=== PATIENT | female | born 1940 | race Caucasian/White ===

== ENCOUNTER 2016-08-15 01:48 | Inpatient (IN) | payer OTHER, MEDICARE ==
[~2016-08-15] VITALS: Ht 160 cm; Wt 81.6 kg
[~2016-08-15 01:48] MED LIST: ESTRACE0.5 M1 PO; FERROUS SULFAT325 M3 PO; HYDROXYZINE HCL25 M2 PO; MEDROXYPROGEST2.5 M2 PO; MELOXICAM7.5 M1 PO; OMEPRAZOLE20 M2 PO; PAROXETINE HCL40 M1 PO; SIMVASTATIN10 M1 PO; VITAMIN D2000 UNIT PO
--- NOTE | 2016-08-15 10:13 | Operative Report ---
Operative/Inv Procedure Report Surgery Date: 08/15/16 Name of Procedure: Left total knee arthroplasty Pre-Operative Diagnosis: Left knee primary osteoarthritis #2. Valgus knee Post-Operative Diagnosis: Same Estimated Blood Loss: less than 50ml Surgeon/Refinery Operator Visbreaking: GENTRY HEARN,Maninder GRANT Anesthesia: block Implants: Zaleski triathlon total knee system-size 3 femur, size 3 tibia, 9 mm cruciate retaining polyethylene, 29 patella Drains: None Specimens: Femoral, tibial, patellar bone Microbiology: Urine Tourniquet: 58 minutes Complications: None Condition: Stable Operative Indication: Patient is a 75-year-old woman with a long history of increasing knee pain and development of a valgus orientation of her knee. Due to ongoing symptoms that interfere with normal activities of daily living she wished to proceed with left total knee arthroplasty. He underwent conservative management with short-term relief only. She underwent right total knee arthroplasty in the past and has done well. Risks benefits and expectations of the surgical procedure were discussed including but not limited to persistent knee pain, need for subsequent surgery, infection, DVT, injury to blood vessel or nerve, anesthesia risks. She wished to proceed with total knee arthroplasty. Of note, discussion concerning her valgus orientation of the knee was discussed and the slightly increased risk of injury to peroneal nerve due to the overall alignment of the knee was discussed. She understands the potential effects of this. Operative/Procedure Note Note: Technical description of procedure patient was brought to the operating room and transferred to the operating table. Once under appropriate anesthesia the left lower extremity was prepped and draped in standard fashion. Preoperative IV antibiotic's were given prophylactically. The left lower external he was elevated exsanguinated and tourniquet was inflated. Standard anterior incision was made for anticipated medial parapatellar approach to the knee. The incision was taken down sharply to the underlying retinaculum. A medial retinacular approach was used. Minimal extension into the quadriceps tendon. The knee was flexed patella was subluxed there was large osteophyte formations were which had to be debrided prior to subluxing the patella. Remnants of the medial lateral meniscal tissues were excised. Remnants of the ACL were excised. Portion of the fat pad was removed to maximize visualization. The trackers were placed. I then used a drill to enter the intramedullary canal the femur. The intramedullary alignment guide was placed and a 5 valgus cut was made. The femur was incised to a size 3. Size 3 cutting guide was planned in place and the cuts were made. I was satisfied with the sizing of the femur. I then turned my attention to the tibia. The posterior horns of the lateral minimal medial meniscal tissues were excised. The PCL was recessed and the knee was taken into flexion and a posterior retractor was placed subluxing the tibia forward with care not to overly retract in order to minimize risk for peroneal injury. I then used the external tibial alignment guide and pin the cutting block in position for a neutral cut from medial to lateral and reproducing patient's posterior slow-paced on preoperative templating and intraoperative measurements. The cut was made while protecting the soft tissues. The tibia was incised to a size 3. I did a trial reduction was size 3 tibia size 3 femur and a 9 mm polyethylene. The knee was taken out to full extension. Full flexion to gravity and good flat mid flexion stability. I then turned my attention to the patella. The patella was measured and the appropriate thickness was removed and then replaced with a 29 mm patella. The 3 lug holes were drilled. Patient did have a significant valgus deformity and therefore required a dressing patella was femoral tracking. A lateral release was accomplished from an extra-articular vantage point using the cautery. I then took the knee through range of motion I was satisfied with the patellofemoral tracking at that point. The 2 lug holes were drilled in the femur and the tibia rotation was marked. All instrument her then removed. Then finished preparation of the tibial punch. All his was removed copious irrigation followed. I used the anterior chamfer bone to plug the distal femur to minimize postoperative hemarthrosis. As the cement was being mixed on table table I did copious irrigation of the bony surfaces. Once the cement was ready applied to the dry clean bony surfaces of the tibia. The size 3 tibia was impacted in place and excess cement was removed with curettes. Cement was applied to the dry clean bony surfaces of the femur. The size 3 femoral component was impacted in place and excess cement was removed with curettes. A 9 mm insert was impacted in place and the knee was taken out to full extension. So was applied to the dry clean bony surfaces of the patella and the size 29 patella was impacted in place and excess cement was removed with a knife. As cement was hardening I did appear articular pericapsular injection of a cocktail which included ropivacaine with epinephrine and Toradol for postoperative pain and inflammation management. Cement was hardening took the knee through range of motion. Small pieces of cement were removed. I was satisfied with the 9 mm insert full extension good mid flexion stability and full flexion to gravity. I then removed the trial polyethylene and copious irrigated tibial tray. I would made sure there was no remaining bone fragments, cement fragments or soft tissue within the tibial tray. I impacted the definitive size [address] and the locking mechanism was confirmed. Copious irrigation followed tourniquet was deflated at 58 minutes hemostasis was obtained. No need for a drain. Every level closure was followed by copious irrigation. The medial retinacular and normal quadriceps tendon incision was closed with interrupted #1 Vicryl suture. Subcutaneous tissues closed in 2 layers with 2-0 Vicryl and skin was closed with a running 3-0 Vicryl suture with the knee in flexion. Appropriate dressings were applied and patient was awakened and taken the recovery room in good condition. No intraoperative palpitations. Blood loss was less than 50 mL Discharge Disposition: PACU
--- NOTE | 2016-08-15 10:42 | Admission Core Measures ---
Admission Meds I reviewed the following Meds: Current Medications Sig/Tristen Start time Last Medication Dose Stop Time Status Admin Ropivacaine 500 ML ONCE ONE 08/15 0900 AC (NAROPIN) 08/17 0239 ON-Q Ball 1 BAG Vancomycin HCl 1,000 MG ONCE 08/15 0000 NR Sodium Chloride 250 ML 08/15 2359 (Normal Saline 0.9%) Acute Coronary Syndrome Inclusion Criteria ACS Diagnosis No Inpatient Core Measures LDL Reminder: If No, please order W/I first 24hr of stay Congestive Heart Failure Inclusion Criteria CHF Diagnosis No Cerebrovascular accident Inclusion Criteria CVA/TIA Diagnosis No Inpatient Core Measures Bedside Swallow Eval Reminder: If BSE failed, place ST order Antithrombotic Reminder: Order Antithrombotic Medication by end of day 2 Antithrombotic Reminder: Document Reason Antithrombotic Not ordered by end of day 2 AFIB/Flutter Reminder: If Present, add to problem list AFIB/Flutter Reminder: Order Anticoag Medication for pts with AFIB/Flutter Atherosclerosis Reminder: If Present, add to problem list LDL Reminder: If No, please order W/I first 24hr of stay PT Order Reminder: If No, please order Venous thromboembolism Inpatient Core Measures VTE Risk Factors: Age > 40, Surgery No [facility] VTE prophylaxis d/t No contraindications No VTE Pharm Prophylaxis d/t No contraindications Inclusion Criteria - Per Current guidelines, there needs to be overlap - treatment for the first 5 days of Warfarin therapy. - Parenteral Anticoagulation (IV or SC) needs to be - given along with Warfarin therapy. VTE Diagnosis No VTE Type NONE VTE Confirmed by (Test) NONE Problem List As ranked by this Provider includes Assessment & Plan 1. Unilateral primary osteoarthritis, left knee HOME MEDS Home Med List Cholecalciferol (Vitamin D3) (Vitamin D) 2,000 UNIT CAPSULE 1 CAP PO DAILY PROPHO (Reported) Estradiol (Estrace) 0.5 MG TABLET 1 TAB PO DAILY POST MENOPAUSE (Reported) Ferrous Sulfate 325 MG (65 MG IRON) TABLET 1 TAB PO DAILY PRE OP (Reported) Hydroxyzine HCl 25 MG TABLET 1 TAB PO DAILY ECZEMA (Reported) Medroxyprogesterone Acetate 2.5 MG TABLET 1 TAB PO 3X PER WEEK POST MENOPAUSE (Reported) Meloxicam 7.5 MG TABLET 1 TAB PO DAILY PAIN (Reported) Omeprazole 20 MG CAPSULE.DR 1 CAP PO DAILY PRN GERD (Reported) Paroxetine HCl 40 MG TABLET 1.5 TAB PO DAILY ANXIETY (Reported) Simvastatin (Simvastatin*) 10 MG TABLET 1 TAB PO QPM CHOLESTEEROL (Reported)
--- NOTE | 2016-08-15 10:45 | Patient Discharge Instructions ---
Discharge Instructions General Discharge Information You were seen/treated for: Left knee pain related to unilateral primary osteoarthritis You had these procedures: Left total knee replacement Watch for these problems: Increasing pain despite the use of pain medication. Increasing redness, warmth or swelling. Drainage of any type from incision. Inability to bear weight on operative leg. Persistent nausea and vomiting. Fever greater than 101.5 degrees. Do not soak the wound: Yes No bath, but you may shower: Yes Other wound care: Please keep wound clean and dry. No ointments or lotions of any type on or near incision at any time. No exceptions. Your dressing will be changed by your nurse on the second day after your surgery. Daily dry dressing changes are recommended each day thereafter. Do not soak your wound in a bath at any time until otherwise indicated by Dr. Bills. You may shower, please dry wound immediately after shower with a clean towel. Special Instructions: Coumadin: You are taking this medication to help prevent the development of blood clots. Another name for this medication is warfarin. The daily dose is subject to change. It is based on labwork called INR which will be tested at a minimum of two times per week. Dr. Bills will instruct you as to how much Coumadin you are to be taking. Please be sure to have communicated with him or his office regarding your doses prior to taking. Diet Continue normal diet: Yes Recommended Diet: Regular Activity Full Activity/No Limits: No Activity Self Limited: Yes Pounds, do NOT lift more than: 10 Activity Limited to: Weight bear as tolerated Acute Coronary Syndrome Inclusion Criteria At IN or during hospital stay patient has or had the following: ACS DIAGNOSIS No Discharge Core Measures Meds if any: Prescribed or Continued at Discharge Meds if any: NOT Prescribed or Continued at Discharge Congestive Heart Failure Inclusion Criteria At DC or during hospital stay patient has or had the following: CHF DIAGNOSIS No Discharge Core Measures Meds if any: Prescribed or Continued at Discharge Meds if any: NOT Prescribed or Continued at Discharge Cerebrovascular accident Inclusion Criteria At DC or during hospital stay patient has or had the following: CVA/TIA Diagnosis No Discharge Core Measures Meds if any: Prescribed or Continued at Discharge Meds if any: NOT Prescribed or Continued at Discharge Venous thromboembolism Inclusion Criteria VTE Diagnosis No VTE Type NONE VTE Confirmed by (Test) NONE Discharge Core Measures - Per Current guidelines, there needs to be overlap - treatment for the first 5 days of Warfarin therapy. - If discharged on Warfarin prior to 5 days of - overlap therapy, the patient will need to be - assessed for post discharge needs including - *Post discharge parental anticoagulation - *Warfarin and/or parental anticoagulation education - *Follow up date to check INR post discharge At least 5 days overlap therapy as Inpatient No Meds if any: Prescribed or Continued at Discharge Note: Overlap Therapy is Warfarin and Anticoagulant Meds if any: NOT Prescribed or Continued at Discharge
--- NOTE | 2016-08-15 10:48 | Surgical Discharge Summary ---
Visit Information Visit Dates Admission Date: 08/15/16 Discharge Date: 08/18/16 History of Present Illness Chief Complaint: Left knee pain related to primary osteoarthritis of the knee, and valgus knee deformity Medical History History of MRSA: No History of VRE: No History of CDIFF: No Pneumonia Vaccine: 10/07/12 Influenza Vaccine: 10/07/12 Psychosocial History Who Do You Live With? Spouse Services at Home: None What is Your Primary Language? Frisian Review of Systems: see h&p Hospital Course Course Attending Physician: GENTRY HEARN,[facility] Primary Care Physician: HALLEY HEARN,[place] Hospital Course: Patient was admitted to the hospital for an elective total joint replacement. The procedure was tolerated well and the patient was transferred to a general surgical floor. Diet was advanced and tolerated and the patient voided spontaneously. The patient was evaluated and treated by physical therapy. At the [facility] were stable and within normal limits, neurovascular status was intact, and pain was controlled with the use of oral pain medications. Complications: None Allergies: Coded Allergies: polyester fibers (Intermediate, NYLON... ACRYLIC ... ITCH 08/05/16) Uncoded Allergies: NUTS (Intermediate, EXACERBATION OF ACNE 08/05/16) Disposition Summary Disposition Principal Diagnosis: Left knee unilateral primary osteoarthritis, valgus knee deformity Additional Diagnosis: same s/p left total knee replacement (08/15/16) Discharge Disposition: home health services Discharge Instructions General Discharge Information Code Status: Full Code Patient's Diet: Regular, advance as tolerated Patient's Activity: Weight bear as tolerated. Rolling walker assistance. Follow-Up Instructions/Appts: Follow up with Dr. Bills in 2 weeks from date of surgery Medications at Discharge Discharge Medications: Stop taking the following medications: Meloxicam (Meloxicam) 7.5 MG TABLET ORAL DAILY Continue taking these medications: Ferrous Sulfate (Ferrous Sulfate) 325 MG (65 MG IRON) TABLET 1 Tablet ORAL DAILY Comments: NOT GIVEN IN HOSPITAL Estradiol (Estrace) 0.5 MG TABLET 1 Tablet ORAL DAILY Comments: NOT GIVEN IN HOSPITAL Medroxyprogesterone Acetate (Medroxyprogesterone Acetate) 2.5 MG TABLET 1 Tablet ORAL 3X PER WEEK Comments: NOT TAKEN IN HOSPITAL Paroxetine HCl (Paroxetine HCl) 40 MG TABLET 1.5 Tablet ORAL DAILY Comments: Last Taken: 08/18/16 Time: 0920 AM Simvastatin (Simvastatin*) 10 MG TABLET 1 Tablet ORAL Every night Comments: Last Taken: 08/17/16 Time: 1630 Cholecalciferol (Vitamin D3) (Vitamin D) 2,000 UNIT CAPSULE 1 Capsule ORAL DAILY Comments: NOT GIVEN IN HOSPITAL Hydroxyzine HCl (Hydroxyzine HCl) 25 MG TABLET 1 Tablet ORAL DAILY Comments: Last Taken: 08/17/16 Time: 2200 Omeprazole (Omeprazole) 20 MG CAPSULE.DR 1 Capsule ORAL DAILY as needed for GERD Comments: NOT TAKEN IN HOSPITAL Start taking the following new medications: Docusate Sodium (Docusate Sodium) 100 MG CAPSULE 100 Milligram ORAL TWICE DAILY as needed for CONSTIPATION Qty = 14 No Refills Instructions: stool softener available over the counter Comments: Last Taken: 08/18/16 Time: 0920AM Oxycodone HCl/Acetaminophen (Percocet 5-325 MG Tablet) 5 MG-325 MG TABLET 1-2 Tablet ORAL EVERY 4-6 HOURS NEEDED as needed for pain control Qty = 36 No Refills Instructions: take as directed for pain control Warfarin Sodium (Coumadin) 5 MG TABLET 1 Tablet ORAL DAILY Qty = 30 No Refills Instructions: dose adjustment as per blood draws for PT/INR, goal INR 2-3 Rolling Walker (Rolling Walker) UNIT Unit SEE INSTRUCTIONS Qty = 1 No Refills Instructions: Use as instructed. Copies To: HALLEY HEARN,TANISHA
[2016-08-15 13:30] VITALS: BP 130/70
--- NOTE | 2016-08-15 13:57 | PN- Orthopedic ---
Subjective Subjective: POSTOP CHECK LLE pain- calling for pain meds now. hungry. no n/v. no cp/sob. legs still "numb" from anesthesia Objective Vital Signs and I&Os Intake & Output 08/15 1600 08/15 0800 08/15 0000 08/14 1600 08/14 0800 08/14 0000 Intake Total Output Total Balance Patient 180 lb Weight Physical Exam: GEN: NAD CARD: s1s2 RRR PULM: no audible wheeze EXT: LLE dressing CDI, ice in place. foot w some edema, warm/pink, palp pedal pulses. gross sensate diminished from anesthesia effects. +dorsi/plantar flexion Assessment/Plan Assessment/Plan A: POD0 sp L TKR, with anesthesia effects still effective, otherwsie stable. P: Coum per INR am labs PT, WBAT, OOB IST prn pain meds advance diet as tolerated home meds willl dw attending Core Measures/Miscellaneous Venous Thromboembolism VTE Risk Factors: Surgery VTE Contraindications: No Contraindications VTE Diagnosis: No VTE Type: NONE VTE Confirmed by (Test): NONE Beta Mio Is Beta Mio a Home Med? No Antibiotics Is Patient on Antibiotics? Yes If Yes: prophylaxis
[2016-08-15 15:25] VITALS: BP 120/80
[2016-08-15 17:04] VITALS: BP 144/80
[2016-08-15 19:10] VITALS: BP 152/80
[2016-08-15 22:55] VITALS: BP 134/64
[2016-08-16 01:58] VITALS: BP 140/66
[2016-08-16 06:30] VITALS: BP 144/80
--- NOTE | 2016-08-16 08:18 | PN- Orthopedic ---
See Addendum Subjective Subjective: Reports difficulty sleeping overnight. Currently in private room, but adjacent room has patient that was very noisy overnight. Ear plugs apparently not helpful. She tried ambien, but was apparently disturbed again by her iv and by vital checks. Reports "no pain" unless moving her leg. Not yet out of bed. No dizziness. No shortness of breath. No chest pains. Tolerating diet. No nausea. Objective Vital Signs and I&Os Vital Signs Date Time Temp Pulse Resp B/P B/P Pulse O2 O2 Flow FiO2 Mean Ox Delivery Rate 08/16 0630 97.6 85 20 144/80 96 Room Air 08/16 0158 97.6 85 20 140/66 93 Room Air 08/15 2255 98.3 83 20 134/64 96 Room Air 08/15 1910 98.0 83 20 152/80 96 Room Air 08/15 1704 98.7 84 19 144/80 95 Room Air 08/15 1525 98.6 80 20 120/80 98 Room Air 08/15 1330 97.8 76 18 130/70 96 Intake & Output 08/16 1600 08/16 0800 08/16 0000 08/15 1600 08/15 0800 08/15 0000 Intake Total 1050 Output Total 1050 600 Balance 0 -600 Intake, IV 600 Intake, Oral 450 Output, Urine 1050 600 Patient 180 lb Weight Physical Exam: General - alert & oriented x 3. comfortable. no acute distress. Lungs - clear bilaterally. no w/r/r. Cardiac - s1s2. reg. Abdomen - soft. nontender. - liu draining clear, yellow urine. Extremities - warm bilaterally. left leg dressing c/d/i. on q in place. calves soft and nontender b/l. nvi. Current Medications: Current Medications Sig/Tristen Start time Last Medication Dose Route Stop Time Status Admin Al Hydroxide/Mg 30 ML Q6P PRN 08/15 1245 AC Hydroxide PO Atorvastatin Calcium 10 MG 1700 08/15 1700 AC 08/15 PO 1908 Dextrose/Lactated 1,000 ML Q13H 08/15 1245 DC 08/15 Ringer's IV 1331 Docusate Sodium 100 MG DAILY NEEDED PRN 08/15 1245 AC PO Hydromorphone HCl 2 MG .STK-MED ONE 08/15 1016 DC IM 08/15 1017 Hydroxyzine HCl 10 MG AT BEDTIME 08/15 2200 AC 08/15 PO 2152 Morphine Sulfate 2 MG Q3P PRN 08/15 1245 AC 08/15 IV 2156 Morphine Sulfate 4 MG Q3P PRN 08/15 1245 AC 08/15 IV 1911 Ondansetron HCl 4 MG Q6P PRN 08/15 1245 AC IV Oxycodone/ 1 TAB Q4P PRN 08/15 1245 AC Acetaminophen PO Oxycodone/ 2 TAB Q4P PRN 08/15 1245 AC Acetaminophen PO Paroxetine HCl 30 MG DAILY 08/16 1000 AC PO Polyethylene Glycol 17 GM DAILY NEEDED PRN 08/15 1245 AC PO Ropivacaine 500 ML ONCE ONE 08/15 0900 AC 08/15 ON-Q Ball 1 BAG INJ 08/17 0239 1331 Senna/Docusate Sodium 2 TAB AT BEDTIME NEED.. 08/15 1245 AC PO Tranexamic Acid 2,000 MG .STK-MED ONE 08/15 0833 DC IV 08/15 0834 Vancomycin HCl 1,000 MG ONCE ONE 08/15 1900 DC 08/15 Sodium Chloride 250 ML IV 08/15 1959 1910 Vancomycin HCl 1,000 MG ONCE 08/15 0000 DC Sodium Chloride 250 ML IV 08/15 2359 Warfarin Sodium 5 MG COUMADIN 1700 ONE 08/15 1700 DC 08/15 PO 08/15 1701 1908 Zolpidem Tartrate 5 MG ONCE ONE 08/16 0230 DC 08/16 PO 08/16 0231 0230 Results Last 48 Hours of Labs: Laboratory Tests 08/16 0630 Chemistry Sodium Pending Potassium Pending Chloride Pending Carbon Dioxide Pending Anion Gap Pending BUN Pending Creatinine Pending BUN/Creatinine Ratio Pending Coagulation PT Pending INR Pending Hematology CBC w Diff Pending WBC Pending RBC Pending Hgb Pending Hct Pending MCV Pending MCH Pending RDW Pending Plt Count Pending MPV Pending PUBS MCHC Pending Assessment/Plan Assessment/Plan This 75 year old female is POD#1 s/p L TKR, reports difficulty sleeping overnight with noisy neighbor tolerating diet. d/c ivf d/c liu catheter f/u labs coumadin accordingly - dvt ppx PT eval home meds ordered dressing changed and on q removal tomorrow, POD#2 will d/w Core Measures/Miscellaneous Venous Thromboembolism VTE Risk Factors: Surgery VTE Contraindications: No Contraindications VTE Diagnosis: No VTE Type: NONE VTE Confirmed by (Test): NONE Beta Mio Is Beta Mio a Home Med? No Antibiotics Is Patient on Antibiotics? Yes If Yes: prophylaxis
[2016-08-16 08:39] LABS: PT 11.5 SEC (9.4-12.5)
[2016-08-16 08:41] LABS: ABSOLUTE BASOPHIL COUNT 0 /CUMM (0.0-0.2); ABSOLUTE EOSINOPHIL COUNT 0 /CUMM (0.0-0.7); ABSOLUTE GRANULOCYTE CT 17.5 /CUMM (1.4-6.5); ABSOLUTE LYMPH COUNT 0.7 /CUMM (1.2-3.4); ABSOLUTE MONOCYTE COUNT 1.2 /CUMM (0.10-0.60); BASOPHIL % 0.1 % (0.0-2.0); EOSINOPHIL % 0 % (0-5); HEMATOCRIT 33.6 % (37-47); MEAN CORPUSCULAR HGB 30.7 PG (27.0-31.0); MEAN CORPUSCULAR HGB CONC 33.5 G/DL (33.0-37.0); MEAN CORPUSCULAR VOLUME 91.6 FL (81.0-99.0); MEAN PLATELET VOLUME 9.9 FL (7.4-10.4); PLATELET COUNT 182 /CUMM (130-400); RBC DISTRIBUTION WIDTH 14.3 % (11.5-14.5); RED BLOOD CELL CT 3.67 /CUMM (4.20-5.40); WHITE BLOOD CELL COUNT 19.4 /CUMM (4.8-10.8)
[2016-08-16 09:49] LABS: GRANULOCYTE % 90.1 % (42.2-75.2)
[2016-08-16 10:10] VITALS: BP 150/70
[2016-08-16 14:08] VITALS: BP 150/80
[2016-08-16 22:10] VITALS: BP 158/64
[2016-08-17 06:30] VITALS: BP 150/60
[2016-08-17 08:33] LABS: PT 14.1 SEC (9.4-12.5)
--- NOTE | 2016-08-17 09:12 | PN- Orthopedic ---
ANIYA JACKSON 08/17/16 0910: Subjective Subjective: Reports more pain in the last day. On q was removed yesterday due to leaking. Tolerating diet. No nausea. Apparently doing well with PT, but needs to clear stairs prior to discharge to home. She denies dizziness. No shortness of breath. No chest pains. Voiding well. Passing flatus but no bm yet. Objective Vital Signs and I&Os Vital Signs Date Time Temp Pulse Resp B/P B/P Pulse O2 O2 Flow FiO2 Mean Ox Delivery Rate 08/17 0630 98.6 86 20 150/60 97 Room Air 08/16 2210 98.0 81 20 158/64 97 08/16 1408 98.0 88 18 150/80 99 Room Air 08/16 1010 98.3 81 20 150/70 98 Room Air Intake & Output 08/17 1600 12 0800 08/17 0000 08/16 1600 08/16 0800 08/16 0000 Intake Total 220 2613 291 7139 Output Total 602 232 2997 1050 Balance 220 -300 1600 -1250 0 Intake, IV 20 150 600 Intake, Oral 200 1800 0 450 Number 0 Bowel Movements Output, Urine 653 327 1268 1050 Physical Exam: General - alert & oriented x 3. comfortable. out of bed to chair. Lungs - clear bilaterally. no w/r/r. Cardiac - s1s2. reg. Abdomen - soft. nontender. Extremities - warm bilaterally. Assessment/Plan Assessment/Plan This 75 year old female is POD#2 s/p L TKR tolerating diet. d/c ivf d/c liu catheter f/u labs coumadin accordingly - dvt ppx PT eval home meds ordered dressing changed and on q removal tomorrow, POD#2 will d/w Core Measures/Miscellaneous Venous Thromboembolism VTE Risk Factors: Surgery VTE Contraindications: No Contraindications VTE Diagnosis: No VTE Type: NONE VTE Confirmed by (Test): NONE Beta Mio Is Beta Mio a Home Med? No Antibiotics Is Patient on Antibiotics? Yes If Yes: prophylaxis
--- NOTE | 2016-08-17 09:18 | PN- Orthopedic ---
See Addendum Subjective Subjective: Reports more pain in the last day. On q was removed yesterday due to leaking. Tolerating diet. No nausea. Apparently doing well with PT, but needs to clear stairs prior to discharge to home. She denies dizziness. No shortness of breath. No chest pains. Voiding well. Passing flatus but no bm yet. Objective Vital Signs and I&Os Vital Signs Date Time Temp Pulse Resp B/P B/P Pulse O2 O2 Flow FiO2 Mean Ox Delivery Rate 08/17 0630 98.6 86 20 150/60 97 Room Air 08/16 2210 98.0 81 20 158/64 97 08/16 1408 98.0 88 18 150/80 99 Room Air 08/16 1010 98.3 81 20 150/70 98 Room Air Intake & Output 08/17 1600 08/17 0800 08/17 0000 08/16 1600 08/16 0800 08/16 0000 Intake Total 220 8572 482 4856 Output Total 102 585 6125 1050 Balance 220 -300 1600 -1250 0 Intake, IV 20 150 600 Intake, Oral 200 1800 0 450 Number 0 Bowel Movements Output, Urine 427 558 6431 1050 Physical Exam: General - alert & oriented x 3. comfortable. out of bed to chair. Lungs - clear bilaterally. no w/r/r. Cardiac - s1s2. reg. Abdomen - soft. nontender. Extremities - warm bilaterally. dressing changed, left knee. incision well approximated with steri strips. no erythema or exudates. calves soft and nontender b/l. nvi. Current Medications: Current Medications Sig/Tristen Start time Last Medication Dose Route Stop Time Status Admin Al Hydroxide/Mg 30 ML Q6P PRN 08/15 1245 AC Hydroxide PO Atorvastatin Calcium 10 MG 1700 08/15 1700 AC 08/16 PO 1652 Docusate Sodium 100 MG BID 08/16 1000 AC 08/17 PO 0759 Hydroxyzine HCl 10 MG AT BEDTIME 08/15 2200 AC 08/16 PO 2110 Morphine Sulfate 2 MG Q3P PRN 08/15 1245 AC 08/15 IV 2156 Morphine Sulfate 4 MG Q3P PRN 08/15 1245 AC 08/17 IV 0139 Ondansetron HCl 4 MG Q6P PRN 08/15 1245 AC IV Oxycodone/ 1 TAB Q4P PRN 07/10 1245 AC 08/16 Acetaminophen PO 1407 Oxycodone/ 2 TAB Q4P PRN 08/15 1245 AC 08/17 Acetaminophen PO 0545 Paroxetine HCl 30 MG DAILY 08/16 1000 AC 08/17 PO 0759 Patient Medication 1 ED .STK-MED ONE 08/16 1413 DC Teaching ED 08/16 1414 Polyethylene Glycol 17 GM DAILY NEEDED PRN 08/15 1245 AC PO Ropivacaine 500 ML ONCE ONE 08/15 0900 DC 08/15 ON-Q Ball 1 BAG INJ 08/17 0239 1331 Senna/Docusate Sodium 2 TAB AT BEDTIME NEED.. 08/15 1245 AC PO Warfarin Sodium 5 MG COUMADIN 1700 ONE 08/16 1700 DC 08/16 PO 08/16 1701 1652 Zolpidem Tartrate 5 MG AT BEDTIME PRN 08/16 1600 AC 08/16 PO 2110 Results Last 48 Hours of Labs: Laboratory Tests 08/17 08/16 0630 0630 Chemistry Sodium (137 - 145 mmol/L) 138 141 Potassium (3.5 - 5.1 mmol/L) 5.0 4.6 Chloride (98 - 107 mmol/L) 101 104 Carbon Dioxide (22 - 30 mmol/L) 29 26 Anion Gap (5 - 16) 8 10 BUN (7 - 17 mg/dL) 11 12 Creatinine (0.5 - 1.0 mg/dL) 0.7 0.6 Estimated GFR (>60 ml/min) > 60 > 60 BUN/Creatinine Ratio (7 - 25 %) 15.7 20.0 Coagulation PT (9.4 - 12.5 SEC) 14.1 H 11.5 INR (0.90 - 1.19) 1.35 H 1.10 Hematology CBC w Diff Pending NO MAN DIFF REQ WBC (4.8 - 10.8 /CUMM) Pending 19.4 H RBC (4.20 - 5.40 /CUMM) Pending 3.67 L Hgb (12.0 - 16.0 G/DL) Pending 11.3 L Hct (37 - 47 %) Pending 33.6 L MCV (81.0 - 99.0 FL) Pending 91.6 MCH (27.0 - 31.0 PG) Pending 30.7 RDW (11.5 - 14.5 %) Pending 14.3 Plt Count (130 - 400 /CUMM) Pending 182 MPV (7.4 - 10.4 FL) Pending 9.9 Gran % (42.2 - 75.2 %) 90.1 H Lymphocytes % (20.5 - 51.1 %) 3.8 L Monocytes % (1.7 - 9.3 %) 6.0 Eosinophils % (0 - 5 %) 0 Basophils % (0.0 - 2.0 %) 0.1 Absolute Granulocytes (1.4 - 6.5 /CUMM) 17.5 H Absolute Lymphocytes (1.2 - 3.4 /CUMM) 0.7 L Absolute Monocytes (0.10 - 0.60 /CUMM) 1.2 H Absolute Eosinophils (0.0 - 0.7 /CUMM) 0 Absolute Basophils (0.0 - 0.2 /CUMM) 0 PUBS MCHC (33.0 - 37.0 G/DL) Pending 33.5 Assessment/Plan Assessment/Plan This 75 year old female is POD#2 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 needs to clear stairs in order to go home. dressing changed and on q removed yesterday bowel regime in place. she's not interested in trying dulcolax / miralax / mom at this time will d/w Core Measures/Miscellaneous Venous Thromboembolism VTE Risk Factors: Surgery VTE Contraindications: No Contraindications VTE Diagnosis: No VTE Type: NONE VTE Confirmed by (Test): NONE Beta Mio Is Beta Mio a Home Med? No Antibiotics Is Patient on Antibiotics? Yes If Yes: prophylaxis
[2016-08-17 10:33] LABS: ABSOLUTE BASOPHIL COUNT 0 /CUMM (0.0-0.2); ABSOLUTE EOSINOPHIL COUNT 0.1 /CUMM (0.0-0.7); ABSOLUTE GRANULOCYTE CT 5.8 /CUMM (1.4-6.5); ABSOLUTE LYMPH COUNT 1.2 /CUMM (1.2-3.4); ABSOLUTE MONOCYTE COUNT 0.9 /CUMM (0.10-0.60); BASOPHIL % 0.2 % (0.0-2.0); EOSINOPHIL % 1.8 % (0-5); GRANULOCYTE % 71.6 % (42.2-75.2); MEAN CORPUSCULAR HGB CONC 32.8 G/DL (33.0-37.0); MEAN CORPUSCULAR VOLUME 91.5 FL (81.0-99.0); MEAN PLATELET VOLUME 9.8 FL (7.4-10.4); PLATELET COUNT 181 /CUMM (130-400); RBC DISTRIBUTION WIDTH 14.2 % (11.5-14.5); RED BLOOD CELL CT 3.39 /CUMM (4.20-5.40)
[2016-08-17] MEDS ORDERED: PERCOCET 5-3251 EACH PO (10:44)
[2016-08-17] MEDS ORDERED: RW (10:44)
[2016-08-17] MEDS ORDERED: DOCUSATE SODIU100 M3 PO (10:44)
[2016-08-17] MEDS ORDERED: COUMADIN5 M2 PO (10:44)
[2016-08-17 11:16] LABS: WHITE BLOOD CELL COUNT 8.1 /CUMM (4.8-10.8)
--- NOTE | 2016-08-17 14:27 | RADIOLOGY REPORT ---
EXAMINATION: XR KNEE, LEFT CLINICAL INFORMATION: Status post left total knee arthroplasty. COMPARISON: X-ray series 10/20/2011. TECHNIQUE: AP and lateral cross table views of the left knee were obtained. FINDINGS: There has been a total left knee arthroplasty. The hardware appears intact and in good anatomic alignment. There are expected postoperative changes in the soft tissues. No acute fractures or subluxations are demonstrated. IMPRESSION: 1. Postoperative changes demonstrating sequelae of left total knee arthroplasty.
[2016-08-17 15:29] VITALS: BP 130/60
[2016-08-17 22:54] VITALS: BP 130/50
[2016-08-18 06:51] VITALS: BP 140/60
--- NOTE | 2016-08-18 08:10 | PN- Orthopedic ---
Subjective Subjective: Very sleep this morning - was given ambien last night, awakens but feels very tired Ambulated well with PT yesterday Pain well controlled this morning Tolerating diet Objective Vital Signs and I&Os Vital Signs Date Time Temp Pulse Resp B/P B/P Pulse O2 O2 Flow FiO2 Mean Ox Delivery Rate 08/18 0651 97.7 90 20 140/60 96 Room Air 08/17 2254 99.5 99 20 130/50 96 Room Air 08/17 1529 97.0 87 20 130/60 97 Intake & Output 08/18 1600 08/18 0800 08/18 0000 08/17 1600 08/17 0800 08/17 0000 Intake Total 195 674 2218 220 Output Total 600 300 Balance 538 359 3064 220 -300 Intake, IV 20 Intake, Oral 219 076 0305 200 Output, Urine 600 300 Physical Exam: VSS General: alert and oriented times three Chest: clear anteriorly bilaterally, RRR Abd: soft, good bs Ext: warm, no edema, no calf tenderness, positive sensate Wound: dressed, dry Assessment/Plan Assessment/Plan 75yo female s/p L TKR PT - wbat dc ambien follow up after breakfast/PT Likely dc home later today Core Measures/Miscellaneous Venous Thromboembolism VTE Risk Factors: Surgery VTE Contraindications: No Contraindications VTE Diagnosis: No VTE Type: NONE VTE Confirmed by (Test): NONE Beta Mio Is Beta Mio a Home Med? No Antibiotics Is Patient on Antibiotics? No If Yes: prophylaxis
[2016-08-18 08:45] LABS: PT 15.5 SEC (9.4-12.5)
[2016-08-18 09:02] LABS: ABSOLUTE BASOPHIL COUNT 0 /CUMM (0.0-0.2); ABSOLUTE EOSINOPHIL COUNT 0.5 /CUMM (0.0-0.7); ABSOLUTE GRANULOCYTE CT 4.5 /CUMM (1.4-6.5); ABSOLUTE LYMPH COUNT 1.7 /CUMM (1.2-3.4); ABSOLUTE MONOCYTE COUNT 0.8 /CUMM (0.10-0.60); BASOPHIL % 0.1 % (0.0-2.0); EOSINOPHIL % 6.2 % (0-5); GRANULOCYTE % 60.1 % (42.2-75.2); HEMATOCRIT 29.9 % (37-47); MEAN CORPUSCULAR HGB 30.8 PG (27.0-31.0); MEAN CORPUSCULAR HGB CONC 33.7 G/DL (33.0-37.0); MEAN CORPUSCULAR VOLUME 91.4 FL (81.0-99.0); MEAN PLATELET VOLUME 9.5 FL (7.4-10.4); PLATELET COUNT 173 /CUMM (130-400); RBC DISTRIBUTION WIDTH 14.1 % (11.5-14.5); RED BLOOD CELL CT 3.28 /CUMM (4.20-5.40); WHITE BLOOD CELL COUNT 7.4 /CUMM (4.8-10.8)
[2016-08-18 13:53] VITALS: BP 150/80
== END 2016-08-18 16:55 | disposition home health service (06) | DRG 470 ==
LOC: 2NA 01:48 → SDA 01:48 → ENRESERV 12:02 → ENTRNSPT 12:38 → EDTRNSPTSTS 12:47 → EDTRNSPT 12:47 → 2NA 12:59 → CMPTRNSPT 13:13 → ENPENDDIS 08-18 12:12 → 2NA 08-18 16:55
PROVIDERS: Physician Assistant; Physician Assistant Surgical; ADMIT Orthopaedic Surgery
PROC: 0SRD0J9 Replacement of Left Knee Joint with Synthetic Substitute, Cemented, Open Approach (ICD-10-PCS; principal; 2016-08-15)
DX: M17.12 Unilateral primary osteoarthritis, left knee (principal); F32.9 Major depressive disorder, single episode, unspecified; M21.062 Valgus deformity, not elsewhere classified, left knee; M25.762 Osteophyte, left knee; E78.5 Hyperlipidemia, unspecified; L30.9 Dermatitis, unspecified
CPT/HCPCS: 2NAP; 73560-LT; 82436; 87086; 97110-GO; 97116-GO; 97161-GP; 97530-GO; C1713; J0131; J0171; J1885; J2405; J2795; J3370; J7040